=== PATIENT | female | born 1970 | race Caucasian/White ===

== ENCOUNTER 2017-04-10 23:41 | Emergency (ER) | payer OTHER ==
[~2017-04-10] VITALS: Ht 162.6 cm; Wt 84.1 kg
[2017-04-11 02:54] VITALS: BP 126/77
== END 2017-04-11 02:57 | disposition home or self-care (01) ==
LOC: EME 23:41
DX: S00.93XA Contusion of unspecified part of head, initial encounter (principal); G89.29 Other chronic pain; W19.XXXA Unspecified fall, initial encounter; M32.9 Systemic lupus erythematosus, unspecified; M06.9 Rheumatoid arthritis, unspecified; E11.9 Type 2 diabetes mellitus without complications; Z87.891 Personal history of nicotine dependence
CPT/HCPCS: 70450; 99281; 99284; J3010

== ENCOUNTER 2017-05-16 02:51 | Emergency (ER) | payer OTHER ==
[~2017-05-16] VITALS: Ht 162.6 cm; Wt 97.7 kg
[2017-05-16] MEDS ORDERED: DIPROSONE 0.05%15 GM TP (04:17)
[2017-05-16] MEDS ORDERED: PROMETHAZINE HC25 M1 PO (04:17)
[2017-05-16] MEDS ORDERED: BACTROBAN CREAM15 GM TP (04:17)
[2017-05-16 04:34] VITALS: BP 134/94
== END 2017-05-16 04:46 | disposition home or self-care (01) ==
LOC: EME 02:51
DX: M32.9 Systemic lupus erythematosus, unspecified (principal); Z87.891 Personal history of nicotine dependence; R11.10 Vomiting, unspecified; L98.8 Other specified disorders of the skin and subcutaneous tissue; E11.9 Type 2 diabetes mellitus without complications; M06.9 Rheumatoid arthritis, unspecified; Z88.2 Allergy status to sulfonamides; Z88.8 Allergy status to other drugs, medicaments and biological substances; L01.00 Impetigo, unspecified; G89.29 Other chronic pain
CPT/HCPCS: 71020; 80053; 81003; 85027; 99281; 99285; J3010; Q0169

== ENCOUNTER 2017-05-22 21:54 | Emergency (ER) | payer OTHER ==
[~2017-05-22] VITALS: Ht 163.8 cm; Wt 88.6 kg
[~2017-05-22 21:54] MED LIST: BACTROBAN CREAM15 GM TP; DIPROSONE 0.05%15 GM TP; PROMETHAZINE HC25 M1 PO
[2017-05-22 23:12] LABS: HEMATOCRIT 43.1 % (36.0-46.0); MCH 30.8 PG (29.0-34.0); MCHC 33.4 G/DL (30.0-36.0); MCV 92.3 FL (83-99); MEAN PLAT.VOLUME 11.1 uM^3 (9.5-12.4); PLATELET COUNT 152 K/uL (156-360); RBC DIS.WIDTH-SD 40.9 % (39-53); RED BLOOD COUNT 4.67 M/uL (3.80-5.20); WHITE BLOOD COUNT 9.2 K/uL (4.1-10.2)
[2017-05-22 23:22] LABS: CHLORIDE 103 mEq/L (99-109); POTASSIUM 3.6 mEq/L (3.7-5.4); SODIUM 140 mEq/L (136-147)
[2017-05-22 23:24] LABS: GLUCOSE 104 mg/dL (70-99)
[2017-05-22 23:26] LABS: ANION GAP 10 MEQ/L (2-14); TOTAL BILIRUBIN 0.2 mg/dL (0.0-1.0)
[2017-05-22 23:28] LABS: ALKALINE PHOSPHATASE 96 IU/L (3-129); GFR ESTIMATE (CALCULATED) > 59 mL/min/
[2017-05-22 23:29] LABS: UREA NITROGEN (BUN) 13 mg/dL (9-23)
[2017-05-22 23:30] LABS: DIRECT BILIRUBIN 0.1 mg/dL (0.0-0.3)
[2017-05-22 23:37] LABS: TROP-I INTERPRETATION NEGATIVE; TROPONIN-I < 0.01 ng/mL (0.0-0.30)
[2017-05-22 23:38] LABS: QUANTITATIVE HCG < 4.0 MIU/ML
[2017-05-22 23:46] LABS: ERTH.SED.RATE 13 MM/HR (0-20)
[2017-05-23] MEDS ORDERED: ZOFRAN ODT4 MG PO (02:23)
[2017-05-23] MEDS ORDERED: BACTROBAN CREAM15 GM TP (02:23)
[2017-05-23] MEDS ORDERED: DOXYCYCLINE HY100 MG PO (02:23)
[2017-05-23] MEDS ORDERED: PROMETHAZINE HC25 M1 PO (03:27)
[2017-05-23 03:32] VITALS: BP 106/57
[2017-05-23 04:49] LABS: C-REACTIVE PROTEIN 3.7 MG/L (0-10)
== END 2017-05-23 03:33 | disposition home or self-care (01) ==
LOC: EME 21:54
DX: L98.9 Disorder of the skin and subcutaneous tissue, unspecified (principal); M32.9 Systemic lupus erythematosus, unspecified; F11.20 Opioid dependence, uncomplicated; G89.29 Other chronic pain; E11.9 Type 2 diabetes mellitus without complications; Z88.8 Allergy status to other drugs, medicaments and biological substances; Z88.2 Allergy status to sulfonamides; Z87.891 Personal history of nicotine dependence
CPT/HCPCS: 80048; 80076; 81003; 83605; 84484; 84702; 85027; 85651; 86140; 87040; 87070; 87075; 87205; 93005; 99281; 99285; J2270; J2405; J3010; J3370; J7040

== ENCOUNTER 2017-05-31 22:47 | Emergency (ER) | payer OTHER ==
[~2017-05-31] VITALS: Ht 162.6 cm; Wt 85.9 kg
[~2017-05-31 22:47] MED LIST changes: +DOXYCYCLINE HY100 MG PO; +ZOFRAN ODT4 MG PO
[2017-06-01 04:09] LABS: CHLORIDE 103 mEq/L (99-109); POTASSIUM 3.6 mEq/L (3.7-5.4); SODIUM 140 mEq/L (136-147)
[2017-06-01 04:11] LABS: GLUCOSE 107 mg/dL (70-99)
[2017-06-01 04:12] LABS: ANION GAP 8 MEQ/L (2-14)
[2017-06-01 04:13] LABS: TOTAL BILIRUBIN 0.1 mg/dL (0.0-1.0)
[2017-06-01 04:15] LABS: ALKALINE PHOSPHATASE 92 IU/L (3-129); GFR ESTIMATE (CALCULATED) > 59 mL/min/
[2017-06-01 04:16] LABS: UREA NITROGEN (BUN) 10 mg/dL (9-23)
[2017-06-01 04:19] LABS: TROP-I INTERPRETATION NEGATIVE; TROPONIN-I < 0.01 ng/mL (0.0-0.30)
[2017-06-01 04:36] LABS: EOSINOPHIL COUNT 0.2 K/uL (0-0.3); HEMATOCRIT 41.8 % (36.0-46.0); LYMPHOCYTE COUNT 2.1 K/uL (1.0-2.8); MCH 30.7 PG (29.0-34.0); MCV 93.1 FL (83-99); MEAN PLAT.VOLUME 11.4 uM^3 (9.5-12.4); MONOCYTE (%) 6.6 % (3-12); MONOCYTE COUNT 0.4 K/uL (0-0.8); NEUTROPHIL (%) 52.6 % (45-76); PLATELET COUNT 129 K/uL (156-360); RBC DIS.WIDTH-CV 12.1 % (11.8-14.6); RBC DIS.WIDTH-SD 41.2 % (39-53); RED BLOOD COUNT 4.49 M/uL (3.80-5.20); WHITE BLOOD COUNT 5.6 K/uL (4.1-10.2)
[2017-06-01] MEDS ORDERED: DOXYCYCLINE HY100 MG PO (04:38)
[2017-06-01] MEDS ORDERED: PREDNISONE20 MG PO (04:38)
[2017-06-01] MEDS ORDERED: PROMETHAZINE HC25 M1 PO (04:57)
[2017-06-01 05:05] VITALS: BP 150/90
== END 2017-06-01 05:04 | disposition home or self-care (01) ==
LOC: EME 22:47
PROVIDERS: Emergency Medicine
DX: L25.9 Unspecified contact dermatitis, unspecified cause (principal); M32.9 Systemic lupus erythematosus, unspecified; E11.9 Type 2 diabetes mellitus without complications; M06.9 Rheumatoid arthritis, unspecified; Z88.2 Allergy status to sulfonamides; Z88.8 Allergy status to other drugs, medicaments and biological substances; Z87.891 Personal history of nicotine dependence
CPT/HCPCS: 71020; 80053; 84443; 84484; 85025; 93005; 99281; 99284; J1100; J2270; J3010; Q0169

== ENCOUNTER 2017-06-18 17:14 | Emergency (ER) | payer OTHER ==
[~2017-06-18] VITALS: Ht 162.6 cm; Wt 81.8 kg
[~2017-06-18 17:14] MED LIST changes: +PREDNISONE20 MG PO
[2017-06-18 18:19] LABS: HEMATOCRIT 39.7 % (36.0-46.0); HEMOGLOBIN 13.2 G/DL (11.9-15.5); MCH 30.8 PG (29.0-34.0); MCHC 33.2 G/DL (30.0-36.0); MCV 92.8 FL (83-99); PLATELET COUNT 118 K/uL (156-360); RBC DIS.WIDTH-CV 12.5 % (11.8-14.6); RBC DIS.WIDTH-SD 42.6 % (39-53); RED BLOOD COUNT 4.28 M/uL (3.80-5.20); WHITE BLOOD COUNT 5.8 K/uL (4.1-10.2)
[2017-06-18 18:27] LABS: ALBUMIN 3.7 g/dL (3.2-4.8)
[2017-06-18 18:28] LABS: CHLORIDE 105 mEq/L (99-109); POTASSIUM 3.8 mEq/L (3.7-5.4); SODIUM 139 mEq/L (136-147)
[2017-06-18 18:30] LABS: GLUCOSE 104 mg/dL (70-99); TOTAL PROTEIN 6.4 g/dL (6.4-8.3)
[2017-06-18 18:32] LABS: TOTAL BILIRUBIN 0.3 mg/dL (0.0-1.0)
[2017-06-18 18:33] LABS: ALKALINE PHOSPHATASE 96 IU/L (3-129)
[2017-06-18 18:34] LABS: CREATININE 0.7 mg/dL (0.6-1.3); GFR ESTIMATE (CALCULATED) > 59 mL/min/
[2017-06-18 18:35] LABS: AST (GOT) 18 IU/L (2-34); UREA NITROGEN (BUN) 15 mg/dL (9-23)
[2017-06-18 18:37] LABS: ALT (GPT) 21 IU/L (3-49)
[2017-06-18] MEDS ORDERED: KEFLEX500 MG PO (18:40)
[2017-06-18 18:42] LABS: QUANTITATIVE HCG < 4.0 MIU/ML
[2017-06-18] MEDS ORDERED: DIFLUCAN150 MG PO (19:02)
[2017-06-18 19:12] VITALS: BP 143/93
== END 2017-06-18 19:12 | disposition home or self-care (01) ==
LOC: EME 17:14
DX: L03.115 Cellulitis of right lower limb (principal); M32.9 Systemic lupus erythematosus, unspecified; R11.2 Nausea with vomiting, unspecified; R51 Headache; L98.499 Non-pressure chronic ulcer of skin of other sites with unspecified severity; Z88.2 Allergy status to sulfonamides; Z87.891 Personal history of nicotine dependence
CPT/HCPCS: 80053; 81003; 84702; 85027; 99281; 99284; J2550; J3010

== ENCOUNTER 2017-06-28 00:57 | Inpatient (IN) | payer OTHER ==
[~2017-06-28] VITALS: Ht 162.6 cm; Wt 98.4 kg
[~2017-06-28 00:57] MED LIST changes: +DIFLUCAN150 MG PO; +KEFLEX500 MG PO
[2017-06-28 01:44] LABS: HEMATOCRIT 40.9 % (36.0-46.0); MCH 31.5 PG (29.0-34.0); MCHC 34.2 G/DL (30.0-36.0); MCV 91.9 FL (83-99); PLATELET COUNT 136 K/uL (156-360); RBC DIS.WIDTH-CV 12.5 % (11.8-14.6); RBC DIS.WIDTH-SD 41.9 % (39-53); RED BLOOD COUNT 4.45 M/uL (3.80-5.20); WHITE BLOOD COUNT 6.8 K/uL (4.1-10.2)
[2017-06-28 01:58] LABS: ALBUMIN 4.1 g/dL (3.2-4.8); CHLORIDE 104 mEq/L (99-109); POTASSIUM 3.9 mEq/L (3.7-5.4); SODIUM 139 mEq/L (136-147)
[2017-06-28 02:00] LABS: GLUCOSE 94 mg/dL (70-99); TOTAL PROTEIN 6.9 g/dL (6.4-8.3)
[2017-06-28 02:02] LABS: TOTAL BILIRUBIN 0.3 mg/dL (0.0-1.0)
[2017-06-28 02:04] LABS: ALKALINE PHOSPHATASE 93 IU/L (3-129); CREATININE 0.8 mg/dL (0.6-1.3); GFR ESTIMATE (CALCULATED) > 59 mL/min/
[2017-06-28 02:05] LABS: AST (GOT) 15 IU/L (2-34); UREA NITROGEN (BUN) 15 mg/dL (9-23)
[2017-06-28 02:07] LABS: ALT (GPT) 20 IU/L (3-49)
[2017-06-28 02:14] LABS: QUANTITATIVE HCG < 4.0 MIU/ML
[2017-06-28 04:22] LABS: LIPASE 17 U/L (1.0-51.0)
[2017-06-28 08:21] LABS: TROP-I INTERPRETATION NEGATIVE; TROPONIN-I 0.01 ng/mL (0.0-0.30)
[2017-06-28] MEDS ORDERED: DIPROSONE 0.05%15 GM TP (11:38)
[2017-06-28] MEDS ORDERED: BACTROBAN OINTM22 GM TP (11:39)
[2017-06-28] MEDS ORDERED: TRAZODONE HCL50 MG PO (11:39)
[2017-06-28 11:42] LABS: C4 COMPLEMENT 31 MG/DL (10-40)
[2017-06-28] MEDS ORDERED: MORPHINE SULFAT60 MG PO (11:42)
[2017-06-28] MEDS ORDERED: ATENOLOL50 MG PO (11:42)
[2017-06-28] MEDS ORDERED: VENLAFAXINE HC150 M1 PO (11:43)
[2017-06-28] MEDS ORDERED: OXYCODONE HCL10 MG PO (11:43)
[2017-06-28] MEDS ORDERED: CYCLOBENZAPRINE10 MG PO (11:43)
[2017-06-28] MEDS ORDERED: FOLIC ACID1 MG PO (11:44)
[2017-06-28] MEDS ORDERED: LEFLUNOMIDE10 MG PO (11:44)
[2017-06-28] MEDS ORDERED: GABAPENTIN400 MG PO (11:44)
[2017-06-28] MEDS ORDERED: BUTALB-ACETAMI1 EAC2 PO (11:45)
[2017-06-28] MEDS ORDERED: MELATONIN10 M1 PO (11:45)
[2017-06-28] MEDS ORDERED: BENADRYL50 MG PO (11:46)
[2017-06-28 17:00] VITALS: BP 124/89
[2017-06-30 14:06] LABS: ANTI-DOUBLE STRANDED DNA 26 U/mL (0-99)
== END 2017-06-28 21:59 | disposition left against medical advice (07) | DRG 603 ==
LOC: EME 00:57 → EDOF 05:25 → CANRESERV 05:27 → ENRESERV 05:27 → CANRESERV 21:29 → ENRESERV 21:29 → EDOF 21:59
PROVIDERS: Hospitalist; Internal Medicine
DX: L03.90 Cellulitis, unspecified (principal); L93.0 Discoid lupus erythematosus; D69.6 Thrombocytopenia, unspecified; R07.89 Other chest pain; G43.909 Migraine, unspecified, not intractable, without status migrainosus; E11.9 Type 2 diabetes mellitus without complications; E66.9 Obesity, unspecified; Z68.37 Body mass index [BMI] 37.0-37.9, adult; M06.9 Rheumatoid arthritis, unspecified; M79.7 Fibromyalgia; R00.1 Bradycardia, unspecified; Z86.14 Personal history of Methicillin resistant Staphylococcus aureus infection; Z87.891 Personal history of nicotine dependence; Z53.29 Procedure and treatment not carried out because of patient's decision for other reasons
CPT/HCPCS: 74176; 80053; 81003; 83605; 83690; 84484; 84702; 85027; 85651; 86140; 86160; 86235; 87040; 87070; 87075; 87205; 93005; 93971; 99281; 99285; J1644; J2270; J2920; J3010; J3370; J7030; Q0169

== ENCOUNTER 2017-07-15 | Observation (INO) | payer OTHER ==
[~2017-07-15] VITALS: Ht 162.6 cm; Wt 99.9 kg
[~2017-07-15] MED LIST changes: +ATENOLOL50 MG PO; +BACTROBAN OINTM22 GM TP; +BENADRYL50 MG PO; +BUTALB-ACETAMI1 EAC2 PO; +CYCLOBENZAPRINE10 MG PO; +FOLIC ACID1 MG PO; +GABAPENTIN400 MG PO; +LEFLUNOMIDE10 MG PO; +MELATONIN10 M1 PO; +MORPHINE SULFAT60 MG PO; +OXYCODONE HCL10 MG PO; +TRAZODONE HCL50 MG PO; +VENLAFAXINE HC150 M1 PO
[2017-07-15 01:54] LABS: BASOPHIL (%) 0.6 % (0-1); EOSINOPHIL (%) 0.7 % (0-5); EOSINOPHIL COUNT 0.1 K/uL (0-0.3); HEMOGLOBIN 13.2 G/DL (11.9-15.5); IMMATURE GRANULOCYTE (%) 0.3 % (0.0-0.7); LYMPHOCYTE (%) 30.9 % (15-42); LYMPHOCYTE COUNT 2.2 K/uL (1.0-2.8); MCH 31.3 PG (29.0-34.0); MCHC 33.8 G/DL (30.0-36.0); MCV 92.4 FL (83-99); MONOCYTE (%) 6.9 % (3-12); MONOCYTE COUNT 0.5 K/uL (0-0.8); NEUTROPHIL (%) 60.6 % (45-76); NEUTROPHIL COUNT 4.3 K/uL (1.8-6.4); PLATELET COUNT 136 K/uL (156-360); RBC DIS.WIDTH-CV 12.4 % (11.8-14.6); RBC DIS.WIDTH-SD 42.4 % (39-53); RED BLOOD COUNT 4.22 M/uL (3.80-5.20)
[2017-07-15 02:02] LABS: ALBUMIN 3.9 g/dL (3.2-4.8); CHLORIDE 103 mEq/L (99-109); POTASSIUM 3.8 mEq/L (3.7-5.4); SODIUM 140 mEq/L (136-147)
[2017-07-15 02:04] LABS: GLUCOSE 98 mg/dL (70-99); TOTAL PROTEIN 6.6 g/dL (6.4-8.3)
[2017-07-15 02:06] LABS: TOTAL BILIRUBIN 0.2 mg/dL (0.0-1.0)
[2017-07-15 02:08] LABS: ALKALINE PHOSPHATASE 82 IU/L (3-129); CREATININE 0.8 mg/dL (0.6-1.3); GFR ESTIMATE (CALCULATED) > 59 mL/min/
[2017-07-15 02:09] LABS: AST (GOT) 15 IU/L (2-34); UREA NITROGEN (BUN) 18 mg/dL (9-23)
[2017-07-15 02:11] LABS: ALT (GPT) 22 IU/L (3-49)
[2017-07-15 02:48] LABS: C-REACTIVE PROTEIN 5.6 MG/L (0-10)
[2017-07-15 03:06] LABS: ERTH.SED.RATE 12 MM/HR (0-20)
[2017-07-15 05:41] VITALS: BP 137/85
[2017-07-15 07:48] VITALS: BP 149/72
[2017-07-15 12:07] VITALS: BP 143/76
[2017-07-15 13:14] VITALS: BP 143/76
[2017-07-15] MEDS ORDERED: PREDNISONE10 MG PO (15:38)
[2017-07-15] MEDS ORDERED: XARELTO20 MG PO (16:23)
[2017-07-15] MEDS ORDERED: EFFEXOR XR37.5 MG PO (16:37)
== END 2017-07-15 16:37 | disposition home or self-care (01) ==
LOC: EME → EDOF 03:55 → ENRESERV 03:57 → 5WEST 05:23
PROVIDERS: Emergency Medicine
DX: R21 Rash and other nonspecific skin eruption (principal); L98.9 Disorder of the skin and subcutaneous tissue, unspecified; G89.29 Other chronic pain; Z86.718 Personal history of other venous thrombosis and embolism; F41.8 Other specified anxiety disorders; G47.00 Insomnia, unspecified; Z86.14 Personal history of Methicillin resistant Staphylococcus aureus infection; Z88.2 Allergy status to sulfonamides; Z88.8 Allergy status to other drugs, medicaments and biological substances
CPT/HCPCS: 80053; 80306 90; 81003; 83605; 85025; 85651; 86038; 86140; 87040; 87070; 87205; G0378; J1170; J2060; J2270; J2930; J3010; J7030; J7512; Q0169

== ENCOUNTER 2017-08-15 23:26 | Emergency (ER) | payer OTHER ==
[~2017-08-15] VITALS: Ht 162.6 cm; Wt 101.3 kg
[~2017-08-15 23:26] MED LIST changes: +EFFEXOR XR37.5 MG PO; +PREDNISONE10 MG PO; +XARELTO20 MG PO
[2017-08-16 00:15] LABS: HEMATOCRIT 38.6 % (36.0-46.0); HEMOGLOBIN 13.4 G/DL (11.9-15.5); MCH 32.4 PG (29.0-34.0); MCHC 34.7 G/DL (30.0-36.0); MCV 93.5 FL (83-99); PLATELET COUNT 175 K/uL (156-360); RBC DIS.WIDTH-CV 12.4 % (11.8-14.6); RBC DIS.WIDTH-SD 42.7 % (39-53); RED BLOOD COUNT 4.13 M/uL (3.80-5.20); WHITE BLOOD COUNT 8.5 K/uL (4.1-10.2)
[2017-08-16 00:25] LABS: CHLORIDE 103 mEq/L (99-109); SODIUM 140 mEq/L (136-147)
[2017-08-16 00:28] LABS: GLUCOSE 110 mg/dL (70-99); TOTAL PROTEIN 7.2 g/dL (6.4-8.3)
[2017-08-16 00:30] LABS: TOTAL BILIRUBIN 0.2 mg/dL (0.0-1.0)
[2017-08-16 00:31] LABS: ALKALINE PHOSPHATASE 86 IU/L (3-129); CREATININE 0.9 mg/dL (0.6-1.3); GFR ESTIMATE (CALCULATED) > 59 mL/min/
[2017-08-16 00:32] LABS: UREA NITROGEN (BUN) 23 mg/dL (9-23)
[2017-08-16 00:33] LABS: AST (GOT) 26 IU/L (2-34)
[2017-08-16 00:34] LABS: ALT (GPT) 26 IU/L (3-49)
[2017-08-16 00:40] LABS: QUANTITATIVE HCG < 4.0 MIU/ML
[2017-08-16 01:05] LABS: LIPASE 25 U/L (1.0-51.0)
[2017-08-16 01:11] LABS: PTT 28.4 SEC (25-37)
[2017-08-16] MEDS ORDERED: PREDNISONE10 MG PO ×2 (03:16→03:18)
[2017-08-16 03:38] VITALS: BP 144/82
== END 2017-08-16 03:39 | disposition home or self-care (01) ==
LOC: EME 23:26
DX: R21 Rash and other nonspecific skin eruption (principal); R52 Pain, unspecified; B37.89 Other sites of candidiasis; M32.9 Systemic lupus erythematosus, unspecified; M06.9 Rheumatoid arthritis, unspecified; M79.7 Fibromyalgia; J45.909 Unspecified asthma, uncomplicated; E11.9 Type 2 diabetes mellitus without complications; I10 Essential (primary) hypertension; F41.9 Anxiety disorder, unspecified; F32.9 Major depressive disorder, single episode, unspecified; Z87.891 Personal history of nicotine dependence; Z88.2 Allergy status to sulfonamides; Z88.8 Allergy status to other drugs, medicaments and biological substances
CPT/HCPCS: 80053; 83605; 83690; 84702; 85027; 85610; 85730; 87040; 87070; 87075; 87205; 99281; 99285; J1170; J2270; J7030; J7512; Q0169